=== PATIENT | male | born 1975 | race Hispanic/Latino ===

== ENCOUNTER 2017-11-26 19:51 | Emergency (ER) | payer SELFPAY ==
[2017-11-26 20:04] VITALS: BMI 21.4
--- NOTE | 2017-11-26 20:04 | ED PDOC ---
Arrival/HPI - General Historian: Patient - History of Present Illness Narrative History of Present Illness (Text): 11/26/17 19:59 42 yo M with no significant medical history presenting to the ED with acute L sided rib/back pain s/p mechanical fall. Per patient, he was walking outside a friend's house earlier today (pt unable to specify time) when he slipped over a wet slate on the sidewalk. He denies any head trauma or LOC, states that he twisted his body and fell onto his L side/back. Pain is worsened with inspiration and sitting. Patient took Tylenol with no improvement of the pain. No other acute complaints at this time. ROS otherwise negative. PMHx: denies PSHx: denies Allergies: NKDA Home Medications: none FHx: "cancer" Social Hx: tobacco user--/4ppd, denies alcohol or illicit drug use Time/Duration: Prior to Arrival Symptom Onset: Sudden Symptom Course: Unchanged Quality: Stabbing Severity Level: 8 Activities at Onset: Light Context: Walking <Leon Gray - Last Filed: 11/26/17 23:58> <Alex Finn - Last Filed: 11/27/17 00:04> - General Chief Complaint: Back Pain Time Seen by Provider: 11/26/17 19:55 Past Medical History - Provider Review Nursing Documentation Reviewed: Yes - Travel History Have you recently traveled outside [place] w/in the past 3 mons?: No - Past History Past History: No Previous <Leon Gray - Last Filed: 11/26/17 23:58> Family/Social History - Physician Review Nursing Documentation Reviewed: Yes Family/Social History: Neoplasm/Cancer Smoking Status: Light Smoker < 10 Cigarettes Daily Hx Alcohol Use: No Hx Substance Use: No Hx Substance Use Treatment: No <Leon Gray - Last Filed: 11/26/17 23:58> Allergies/Home Meds <Leon Gray - Last Filed: 11/26/17 23:58> <Alex Finn - Last Filed: 11/27/17 00:04> Allergies/Adverse Reactions: Allergies No Known Allergies Allergy (Verified 11/26/17 20:04) Review of Systems - Review of Systems Constitutional: Normal Eyes: Normal ENT: Normal Respiratory: Normal Cardiovascular: Normal Gastrointestinal: Normal Genitourinary Male: Normal Musculoskeletal: Back Pain Skin: Normal Neurological: Normal Endocrine: Normal Hemo/Lymphatic: Normal Psychiatric: Normal <Leon Gray - Last Filed: 11/26/17 23:58> Physical Exam - Physical Exam Narrative Physical Exam (Text): 11/26/17 20:05 No ecchymosis, abrasions, contusions, lacerations noted No crepitus on PE TTP L ribs 5-12 TTP LUQ abdomen L paraspinal tenderness Appearance: Positive for: Well-Appearing, Non-Toxic Mental Status: Positive for: Alert and Oriented X 3 - Systems Exam Head: Present: Atraumatic, Normocephalic Pupils: Present: PERRL Extroacular Muscles: Present: EOMI Conjunctiva: Present: Normal Mouth: Present: Moist Mucous Membranes Pharnyx: Present: Normal Neck: Present: Normal Range of Motion Respiratory/Chest: Present: Clear to Auscultation, Good Air Exchange, Tender to Palpation. No: Respiratory Distress, Accessory Muscle Use, Wheezes, Rales, Retracting Cardiovascular: Present: Regular Rate and Rhythm, Normal S1, S2. No: Murmurs Abdomen: Present: Tenderness (TTP LUQ), Normal Bowel Sounds. No: Distention, Rebound, Guarding, Mass/Organomegaly Back: Present: Normal Inspection, Paraspinal Tenderness Upper Extremity: Present: Normal Inspection, Normal ROM, NORMAL PULSES, Capillary Refill < 2s. No: Cyanosis, Edema, Tenderness, Swelling, Erythema Lower Extremity: Present: Normal Inspection, NORMAL PULSES, Normal ROM, Capillary Refill < 2 s. No: Edema, CALF TENDERNESS, Cyanosis, Tenderness, Swelling, Erythema Neurological: Present: CN II-XII Intact, Speech Normal Skin: Present: Warm, Dry, Normal Color. No: Rashes, Erythematous, Induration, Laceration, Abrasion Psychiatric: Present: Alert, Oriented x 3, Normal Insight, Normal Concentration <Leon Gray - Last Filed: 11/26/17 23:58> Medical Decision Making ED Course and Treatment: 11/26/17 20:06 Impression: 42 yo Caucuasian M with no PMHx presenting to ED with L sided rib/back pain s/p mechanical fall Plan: --CMP,CBC --IVF --CT chest/abd/pelvis w/ IV contrast --Monitor and disposition <Leon Gray - Last Filed: 11/26/17 23:58> ED Course and Treatment: 11/26/17 21:36 Haresh Vogel is a 42 year old male who presents to the emergency department with a complaint of left-sided rib/ back pain s/p mechanical fall today. In agreement with resident note, which includes further HPI details. Patient was seen and evaluated with resident, came up with plan and treatment together. CT Chest with Intravenous Contrast CT Abdomen and Pelvis with Intravenous Contrast Electronically signed on Nov 26, 2017 11:33:04 EDT by: Shane Krishna M.D., Certified by [facility] Impression: No acute intra- thoracic, intra- abdominal, or intra- pelvic abnormality. - RAD Interpretation Radiology Orders: 11/26/17 20:10 CHEST TWO VIEWS (PA/LAT) [RAD] Stat - Medication Orders Current Medication Orders: Ibuprofen (Motrin Tab) 600 mg PO STAT STA Stop: 11/26/17 20:11 <Alex Finn - Last Filed: 11/27/17 00:04> - PA / [employer] / Resident Statement / has reviewed & agrees with the documentation as recorded. MD/ has examined the patient and agrees with the treatment plan. - Scribe Statement The provider has reviewed the documentation as recorded by the Deandre Houston Provider Scribe Attestation: All medical record entries made by the Scribe were at my direction and personally dictated by me. I have reviewed the chart and agree that the record accurately reflects my personal performance of the history, physical exam, medical decision making, and the department course for this patient. I have also personally directed, reviewed, and agree with the discharge instructions and disposition. <Alex Finn - Last Filed: 11/27/17 00:04> Disposition/Present on Arrival <Leon Gray - Last Filed: 11/26/17 23:58> - Present on Arrival Any Indicators Present on Arrival: No - Disposition Have Diagnosis and Disposition been Completed?: Yes Disposition Time: 23:51 Patient Plan: Discharge <Alex Finn - Last Filed: 11/27/17 00:04> - Disposition Diagnosis: Muscle strain, Rib contusion Disposition: HOME/ ROUTINE Patient Problems: Current Active Problems Problem Status Onset Muscle strain Acute Rib contusion Acute Condition: GOOD Discharge Instructions (ExitCare): Muscle Strain (DC), Bruised Rib (DC) Additional Instructions: Rest/no strenuous physical activity/take meds as prescribed/follow up with your doctor Prescriptions: Naproxen [Naprosyn] 500 mg PO BID PRN #14 tab PRN Reason: Pain Referrals: FAMILY PROVIDER,NO [Primary Care Provider] - Follow up with primary [facility] [Outside] - Follow up with primary Celeste Matamoros MD [Medical Doctor] - Follow up with primary Forms: [employer] ([place])
[2017-11-26] MEDS ORDERED: Sodium Chloride 0.9% 1,000 ML IV STA (20:28)
[2017-11-26 22:03] LABS: ALB/GLOB RATIO 1.2 (1.1-1.8); ALBUMIN 3.7 g/dL (3.0-4.8); ALT/SGPT 24 U/L (7-56); AST/SGOT 26 U/L (17-59); BLOOD UREA NITROGEN 17 mg/dL (7-21); CALCIUM 8.8 mg/dL (8.4-10.5); GFR NON-AFRICAN AMERICAN > 60
[2017-11-26 22:05] LABS: HEMOGLOBIN 13.4 g/dL (14.0-18.0); MEAN CELL VOLUME 92.9 fl (80.0-105.0); MEAN CORPUSCULAR HEMOGLOBIN 30.6 pg (25.0-35.0); MEAN CORPUSCULAR HGB CONC 32.9 g/dl (31.0-37.0); MEAN PLATELET VOLUME 9.6 fl (7.0-11.0); RBC 4.38 10^6/uL (3.5-6.1); RED CELL DISTRIBUTION WIDTH 13.8 % (11.5-14.5); WHITE BLOOD COUNT 7.9 10^3/ul (4.5-11.0)
[2017-11-26] MEDS ORDERED: Morphine 2 mg/ml ISec IVP STA ×2 (22:18→22:20)
[2017-11-26 23:01] VITALS: BP 129/77; PULSE 64; RESP 18; O2SAT 98
--- NOTE | 2017-11-27 11:08 | CT ---
Date of service: 11/26/2017 PROCEDURE: CT Chest, Abdomen and Pelvis with intravenous contrast HISTORY: left lower rib/abd/back pain post trauma COMPARISON: None available. TECHNIQUE: Helical CT of the chest, abdomen and pelvis was performed following intravenous iodinated contrast administration only, as requested. Oral contrast was withheld as per referring physician request. Reformatted dataset provided multiple projections. IV dose administered: Omnipaque 350, 140 cc Radiation dose: Total exam DLP = 825.97 mGy-cm. This CT exam was performed using one or more of the following dose reduction techniques: Automated exposure control, adjustment of the mA and/or kV according to patient size, and/or use of iterative reconstruction technique. FINDINGS: CT CHEST WITH CONTRAST: LUNGS: Clear. No nodule, mass or consolidation. MEDIASTINUM: Unremarkable. Normal caliber aorta and pulmonary arterial trunk. No aortic dissection. Normal size heart. LYMPH NODES: Unremarkable. PLEURA: Unremarkable. No pneumothorax. No pleural fluid. BONES: Unremarkable. OTHER FINDINGS: None. CT ABDOMEN AND PELVIS: LIVER: No intrahepatic biliary dilatation or dominant mass. A small lucency is seen proxy 1 cm at the right lobe liver inferiorly with peripheral enhancement suggestive of probable small benign hemangioma. This is difficult to characterize due to its small size. GALLBLADDER AND BILE DUCTS: Gallbladder is contracted and otherwise unremarkable appearing. PANCREAS: Unremarkable. No gross lesion or ductal dilatation. SPLEEN: Unremarkable. ADRENALS: Unremarkable. No mass. KIDNEYS AND URETERS: Unremarkable. No hydronephrosis. No solid mass. VASCULATURE: Unremarkable. No aortic aneurysm. BOWEL: The stomach is distended with retained food there is relatively prominent fecal loading seen throughout proximal half of the large bowel. No definite bowel obstruction identified. APPENDIX: Not clearly identified. No definite CT pattern suggest appendicitis at this time. PERITONEUM: Unremarkable. No free fluid. No free air. LYMPH NODES: Unremarkable. No enlarged lymph nodes. BLADDER: Unremarkable. REPRODUCTIVE: Unremarkable. BONES: No acute fracture. OTHER FINDINGS: None. IMPRESSION: No acute thoracic, abdominal or pelvic findings including fracture. Small likely benign hemangioma is seen at the right lobe liver inferiorly, difficult to characterize due to its small size. ( Discordant preliminary report from [email or web address], 11/26/2017 within otherwise concordant interpretation).
== END 2017-11-27 00:28 | disposition home or self-care (01) ==
LOC: ED 19:51
DX: S20.212A Contusion of left front wall of thorax, initial encounter (principal); S29.011A Strain of muscle and tendon of front wall of thorax, initial encounter; W01.0XXA Fall on same level from slipping, tripping and stumbling without subsequent striking against object, initial encounter; Y92.480 Sidewalk as the place of occurrence of the external cause
CPT/HCPCS: 71260; 74177; 80053; 85027; 96361; 96374; 99283; J2270; J7030; Q9967